=== PATIENT | female | born 1955 | race Caucasian/White ===

== ENCOUNTER 2023-11-22 10:56 | Inpatient (IN) | payer MEDICARE, MEDICAID ==
[~2023-11-22] VITALS: Ht 167.6 cm; Wt 47.7 kg
[~2023-11-22 10:56] MED LIST: ATOR10TA69 PO; DULO-113 PO; LEVO75 PO; LURA60TA4 PO; PROP60CA31 PO; TEMA15CA PO
[2023-11-24] MEDS ORDERED: HALOPERIDOL 5 MG TABLET PO PRN (10:15)
[2023-11-24 18:44] VITALS: BP 145/81; PULSE 57; RESP 18; TEMP 98
[2023-11-24 20:14] VITALS: BP 135/83; PULSE 68; RESP 18; TEMP 97.1
[2023-11-24] MEDS: HydrALAZINE HCL 50 MG TABLET PO SCH (23:32)
[2023-11-24 23:33] VITALS: BP 146/74; PULSE 58
[2023-11-25] MEDS: LEVOTHYROXINE SODIUM 75 MCG TABLET PO SCH (06:56)
[2023-11-25] MEDS: HydrALAZINE HCL 50 MG TABLET PO SCH ×3 (08:00→23:48)
[2023-11-25] MEDS: PANTOPRAZOLE SODIUM 40 MG DR TABLET PO SCH (08:44)
[2023-11-25] MEDS: ATORVASTATIN CALCIUM 10 MG TABLET PO SCH (08:44)
[2023-11-25 09:29] VITALS: BP 106/70; PULSE 85; RESP 18; TEMP 97.9
[2023-11-25] MEDS: AmLODIPine BESYLATE 10 MG TABLET PO SCH (10:39)
[2023-11-25] MEDS: PROPRANOLOL HCL 60 MG ER CAPSULE PO SCH (10:39)
[2023-11-25] MEDS: BACITRACIN 28 GM OINTMENT TP SCH ×2 (10:40→16:38)
[2023-11-25 10:41] VITALS: BP 149/74; RESP 18
[2023-11-25] MEDS: DULoxetine HCL 30 MG CAPSULE PO SCH (13:47)
[2023-11-25] MEDS ORDERED: MAG HYDROX/ALUMINUM HYD/SIMETH ES 30 ML SUSPENSION UDCUP PO PRN (14:15)
[2023-11-25] MEDS ORDERED: MAGNESIUM HYDROXIDE SUSPENSION 30 ML UDCUP PO PRN (14:15)
[2023-11-25] MEDS ORDERED: PETROLATUM,WHITE 28 GM JELLY TP PRN (14:15)
[2023-11-25] MEDS ORDERED: IBUPROFEN 400 MG TABLET PO PRN (14:15)
[2023-11-25] MEDS ORDERED: ONDANSETRON HCL 4 MG TABLET PO PRN (14:15)
[2023-11-25] MEDS ORDERED: LOPERAMIDE HCL 2 MG CAPSULE PO PRN (14:15)
[2023-11-25] MEDS ORDERED: NICOTINE 14 MG/24 HOUR PATCH TD PRN (14:15)
[2023-11-25] MEDS ORDERED: GuaiFENesin/D-METHORPHAN [SUGAR-FREE] 200-20MG/10 ML SYRUP UDCUP PO PRN (14:15)
[2023-11-25] MEDS ORDERED: ALBUTEROL SULFATE HFA 90 MCG/PUFF 8 GM INHALER IH PRN (14:15)
[2023-11-25] MEDS ORDERED: DOCUSATE SODIUM 100 MG CAPSULE PO PRN (14:15)
[2023-11-25] MEDS ORDERED: CloNIDine HCL 0.1 MG TABLET PO PRN (14:15)
[2023-11-25] MEDS ORDERED: ACETAMINOPHEN 325 MG TABLET PO PRN (14:15)
[2023-11-25 20:20] VITALS: BP 132/60; PULSE 80; RESP 18; TEMP 97.2
[2023-11-25] MEDS: LORazepam 2 MG TABLET PO PRN (21:48)
[2023-11-25 23:49] VITALS: BP 124/58; PULSE 59; RESP 18
[2023-11-26] MEDS: LEVOTHYROXINE SODIUM 75 MCG TABLET PO SCH (06:44)
[2023-11-26] MEDS: LURASIDONE HCL 80 MG TABLET PO SCH (07:01)
[2023-11-26 07:39] LABS: APPEARANCE,URINE CLEAR (CLEAR); BILIRUBIN,URINE NEGATIVE (NEGATIVE); COLOR,URINE COLORLESS (YELLOW); GLUCOSE, URINE (UA) NEGATIVE (NEGATIVE); KETONES,URINE NEGATIVE (NEGATIVE); LEUKOCYTE ESTERASE ,URINE NEGATIVE (NEGATIVE); NITRATE,URINE NEGATIVE (NEGATIVE); OCCULT BLOOD,URINE NEGATIVE (NEGATIVE); PH,URINE 5.5 (5.0-8.0); PROTEIN,URINE NEGATIVE (NEGATIVE); SPECIFIC GRAVITIY, URINE 1.004 (1.003-1.030); UROBILINOGEN,URINE <=1.0 mg/dL (<=1.0)
[2023-11-26 07:41] LABS: HEMOGLOBIN A1C 5.6 % (3.8-5.6)
[2023-11-26 07:45] LABS: AMPHET/METH SCREEN,URINE NEGATIVE (NEGATIVE); BARBITURATE SCREEN, URINE NEGATIVE (NEGATIVE); BENZODIAZEPINES SCREEN,URINE NEGATIVE (NEGATIVE); CANNABINOID SCREEN,URINE NEGATIVE (NEGATIVE); COCAINE SCREEN,URINE NEGATIVE (NEGATIVE); METHADONE SCREEN, URINE NEGATIVE (NEGATIVE); OPIATE SCREEN,URINE NEGATIVE (NEGATIVE); PHENCYCLIDINE SCREEN,URINE NEGATIVE (NEGATIVE)
[2023-11-26 07:47] LABS: THYROID STIMULATING HORMONE 2.17 uIU/mL (0.36-3.74)
[2023-11-26 07:52] LABS: PH,URINE DRUG SCREEN 5.5 (5.0-8.0)
[2023-11-26 07:53] LABS: ALCOHOL, URINE DRUG SCREEN NEGATIVE (NEGATIVE)
[2023-11-26 09:11] VITALS: RESP 18
[2023-11-26 09:32] LABS: CHOL/HDL RATIO 3.5 (3.9-5.7)
[2023-11-26] MEDS: PANTOPRAZOLE SODIUM 40 MG DR TABLET PO SCH (11:45)
[2023-11-26] MEDS: PROPRANOLOL HCL 60 MG ER CAPSULE PO SCH (11:46)
[2023-11-26] MEDS: HydrALAZINE HCL 50 MG TABLET PO SCH ×2 (11:46→17:26)
[2023-11-26] MEDS: BACITRACIN 28 GM OINTMENT TP SCH ×2 (11:48→17:26)
[2023-11-26] MEDS: DULoxetine HCL 30 MG CAPSULE PO SCH (11:48)
[2023-11-26] MEDS: AmLODIPine BESYLATE 10 MG TABLET PO SCH (11:48)
[2023-11-26] MEDS: ATORVASTATIN CALCIUM 10 MG TABLET PO SCH (11:49)
[2023-11-26] MEDS: MIRTAZAPINE 15 MG TABLET PO SCH (21:07)
[2023-11-26] MEDS: ZOLPIDEM TARTRATE 10 MG TABLET PO PRN (21:08)
[2023-11-26 21:44] VITALS: BP 116/58; PULSE 52; RESP 18; TEMP 98.1
[2023-11-26 23:50] VITALS: BP 112/56; PULSE 60; RESP 19; TEMP 97.6
[2023-11-27] MEDS: LEVOTHYROXINE SODIUM 75 MCG TABLET PO SCH (07:23)
[2023-11-27] MEDS: LURASIDONE HCL 80 MG TABLET PO SCH (07:31)
[2023-11-27] MEDS: HydrALAZINE HCL 50 MG TABLET PO SCH ×4 (08:00→23:15)
[2023-11-27] MEDS: BACITRACIN 28 GM OINTMENT TP SCH ×2 (08:33→16:06)
[2023-11-27] MEDS: PANTOPRAZOLE SODIUM 40 MG DR TABLET PO SCH (08:34)
[2023-11-27] MEDS: DULoxetine HCL 30 MG CAPSULE PO SCH (08:34)
[2023-11-27] MEDS: ATORVASTATIN CALCIUM 10 MG TABLET PO SCH (08:34)
[2023-11-27 08:38] VITALS: RESP 19
[2023-11-27] MEDS: AmLODIPine BESYLATE 10 MG TABLET PO SCH (09:40)
[2023-11-27] MEDS: PROPRANOLOL HCL 60 MG ER CAPSULE PO SCH (09:40)
[2023-11-27 09:44] VITALS: BP 115/60; PULSE 61; RESP 18; TEMP 98.4
[2023-11-27 16:26] VITALS: BP 146/74; RESP 18
[2023-11-27] MEDS: MIRTAZAPINE 15 MG TABLET PO SCH (20:07)
[2023-11-27 21:50] VITALS: RESP 18; TEMP 97.1
[2023-11-27] MEDS: ZOLPIDEM TARTRATE 10 MG TABLET PO PRN (22:53)
[2023-11-28] MEDS: LURASIDONE HCL 80 MG TABLET PO SCH (06:39)
[2023-11-28] MEDS: LEVOTHYROXINE SODIUM 75 MCG TABLET PO SCH (06:40)
[2023-11-28] MEDS: PANTOPRAZOLE SODIUM 40 MG DR TABLET PO SCH (08:10)
[2023-11-28] MEDS: ATORVASTATIN CALCIUM 10 MG TABLET PO SCH (08:10)
[2023-11-28] MEDS: AmLODIPine BESYLATE 10 MG TABLET PO SCH (08:10)
[2023-11-28] MEDS: PROPRANOLOL HCL 60 MG ER CAPSULE PO SCH (08:11)
[2023-11-28] MEDS: DULoxetine HCL 30 MG CAPSULE PO SCH (08:11)
[2023-11-28] MEDS: HydrALAZINE HCL 50 MG TABLET PO SCH ×3 (08:11→23:53)
[2023-11-28 09:10] VITALS: BP 151/75; PULSE 72; RESP 17; TEMP 97.1
[2023-11-28] MEDS: BACITRACIN 28 GM OINTMENT TP SCH ×2 (09:17→16:22)
[2023-11-28 14:35] LABS: CALCIUM, TOTAL 9.7 mg/dL (8.8-10.5); CREATININE 2.07 mg/dL (0.60-1.30); POTASSIUM 4.1 mmol/L (3.5-5.1)
[2023-11-28] MEDS: MIRTAZAPINE 15 MG TABLET PO SCH (20:48)
[2023-11-28 21:51] VITALS: BP 140/70; PULSE 70; RESP 18; TEMP 97.7
[2023-11-28 23:54] VITALS: BP 148/79
[2023-11-29] MEDS: LEVOTHYROXINE SODIUM 75 MCG TABLET PO SCH (06:51)
[2023-11-29] MEDS: LURASIDONE HCL 80 MG TABLET PO SCH (06:51)
[2023-11-29] MEDS: PROPRANOLOL HCL 60 MG ER CAPSULE PO SCH (08:31)
[2023-11-29] MEDS: DULoxetine HCL 30 MG CAPSULE PO SCH (08:32)
[2023-11-29] MEDS: HydrALAZINE HCL 50 MG TABLET PO SCH ×3 (08:32→23:58)
[2023-11-29] MEDS: ATORVASTATIN CALCIUM 10 MG TABLET PO SCH (08:32)
[2023-11-29] MEDS: BACITRACIN 28 GM OINTMENT TP SCH ×2 (08:32→16:19)
[2023-11-29] MEDS: PANTOPRAZOLE SODIUM 40 MG DR TABLET PO SCH (08:32)
[2023-11-29] MEDS: AmLODIPine BESYLATE 10 MG TABLET PO SCH (08:33)
[2023-11-29 09:48] VITALS: BP 124/76; PULSE 96; RESP 18; TEMP 97.7
[2023-11-29 15:43] VITALS: BP 128/80; PULSE 80; RESP 17; TEMP 98
[2023-11-29 20:23] VITALS: BP 129/87; PULSE 78; RESP 18; TEMP 97.9
[2023-11-29] MEDS: MIRTAZAPINE 15 MG TABLET PO SCH (20:50)
[2023-11-29 23:50] VITALS: BP 99/64; PULSE 82; RESP 20; TEMP 97.3
[2023-11-30] MEDS: LEVOTHYROXINE SODIUM 75 MCG TABLET PO SCH (06:55)
[2023-11-30] MEDS: LURASIDONE HCL 80 MG TABLET PO SCH (06:55)
[2023-11-30] MEDS: BACITRACIN 28 GM OINTMENT TP SCH ×2 (09:00→18:05)
[2023-11-30 09:11] VITALS: BP 144/56; PULSE 86; RESP 18; TEMP 98.1
[2023-11-30 10:28] VITALS: BP 146/67; PULSE 64
[2023-11-30] MEDS: PROPRANOLOL HCL 60 MG ER CAPSULE PO SCH (10:29)
[2023-11-30] MEDS: PANTOPRAZOLE SODIUM 40 MG DR TABLET PO SCH (10:29)
[2023-11-30] MEDS: ATORVASTATIN CALCIUM 10 MG TABLET PO SCH (10:29)
[2023-11-30] MEDS: HydrALAZINE HCL 50 MG TABLET PO SCH ×3 (10:29→23:45)
[2023-11-30] MEDS: AmLODIPine BESYLATE 10 MG TABLET PO SCH (10:29)
[2023-11-30] MEDS: DULoxetine HCL 30 MG CAPSULE PO SCH (10:30)
[2023-11-30 18:03] VITALS: BP 126/53; PULSE 53
[2023-11-30] MEDS: MIRTAZAPINE 15 MG TABLET PO SCH (21:00)
[2023-11-30 21:25] VITALS: BP 100/56; PULSE 56; TEMP 97.8
[2023-11-30] MEDS: ZOLPIDEM TARTRATE 10 MG TABLET PO PRN (21:34)
[2023-11-30] MEDS: LORazepam 2 MG TABLET PO PRN (21:57)
[2023-12-01] MEDS: LEVOTHYROXINE SODIUM 75 MCG TABLET PO SCH (06:36)
[2023-12-01] MEDS: LURASIDONE HCL 80 MG TABLET PO SCH (06:36)
[2023-12-01] MEDS: HydrALAZINE HCL 50 MG TABLET PO SCH ×2 (08:00→17:15)
[2023-12-01] MEDS: BACITRACIN 28 GM OINTMENT TP SCH ×2 (08:39→17:15)
[2023-12-01] MEDS: AmLODIPine BESYLATE 10 MG TABLET PO SCH (08:40)
[2023-12-01] MEDS: PANTOPRAZOLE SODIUM 40 MG DR TABLET PO SCH (08:40)
[2023-12-01] MEDS: ATORVASTATIN CALCIUM 10 MG TABLET PO SCH (08:40)
[2023-12-01] MEDS: PROPRANOLOL HCL 60 MG ER CAPSULE PO SCH ×2 (08:40→09:00)
[2023-12-01] MEDS: DULoxetine HCL 30 MG CAPSULE PO SCH (08:40)
[2023-12-01 09:39] VITALS: BP 113/42; PULSE 52; RESP 18; TEMP 97.2
[2023-12-01] MEDS: LORazepam 2 MG TABLET PO PRN (13:23)
[2023-12-01 20:42] VITALS: BP 147/61; PULSE 66; RESP 18; TEMP 98.4
[2023-12-01] MEDS: MIRTAZAPINE 15 MG TABLET PO SCH (21:00)
[2023-12-01] MEDS: ZOLPIDEM TARTRATE 10 MG TABLET PO PRN (21:25)
[2023-12-02] MEDS: HydrALAZINE HCL 50 MG TABLET PO SCH ×2 (00:41→09:10)
[2023-12-02] MEDS: LURASIDONE HCL 80 MG TABLET PO SCH (06:54)
[2023-12-02] MEDS: LEVOTHYROXINE SODIUM 75 MCG TABLET PO SCH (06:54)
[2023-12-02] MEDS: DULoxetine HCL 30 MG CAPSULE PO SCH (09:09)
[2023-12-02] MEDS: ATORVASTATIN CALCIUM 10 MG TABLET PO SCH (09:10)
[2023-12-02] MEDS: AmLODIPine BESYLATE 10 MG TABLET PO SCH (09:10)
[2023-12-02] MEDS: PANTOPRAZOLE SODIUM 40 MG DR TABLET PO SCH (09:10)
[2023-12-02] MEDS: PROPRANOLOL HCL 60 MG ER CAPSULE PO SCH (09:10)
[2023-12-02] MEDS: BACITRACIN 28 GM OINTMENT TP SCH (09:10)
[2023-12-02] MEDS ORDERED: MIRT-89 PO (10:26)
[2023-12-02] MEDS ORDERED: BACI28.410 TP (10:29)
[2023-12-02] MEDS ORDERED: AMLO-258 PO (10:29)
[2023-12-02] MEDS ORDERED: HYDR50TA36 PO (10:30)
[2023-12-02] MEDS ORDERED: PANT-31 PO (10:31)
[2023-12-02 11:26] VITALS: BP 115/72; PULSE 86; RESP 19; TEMP 96.7
== END 2023-12-02 16:42 | disposition home or self-care (01) | DRG 885 ==
LOC: 3EI 11-24 16:45 → UNDOADMIN 11-24 16:45
PROVIDERS: ADMIT Psychiatry & Neurology Psychiatry; ATTEND Psychiatry & Neurology Psychiatry
DX: F25.9 Schizoaffective disorder, unspecified (principal); F06.1 Catatonic disorder due to known physiological condition; N17.9 Acute kidney failure, unspecified; E87.20 Acidosis, unspecified; E87.0 Hyperosmolality and hypernatremia; F31.9 Bipolar disorder, unspecified; E03.9 Hypothyroidism, unspecified; E78.5 Hyperlipidemia, unspecified; I10 Essential (primary) hypertension; Z91.51 Personal history of suicidal behavior; Z79.899 Other long term (current) drug therapy; Z88.0 Allergy status to penicillin
CPT/HCPCS: 80048; 80061; 80307; 81003; 83036; 84443; 87081

== ENCOUNTER 2024-01-08 10:43 | Inpatient (IN) | payer MEDICARE, OTHER ==
[~2024-01-08] VITALS: Ht 167.6 cm; Wt 49.9 kg
[~2024-01-08 10:43] MED LIST changes: +AMLO-258 PO; +BACI28.410 TP; +HYDR50TA36 PO; +MIRT-89 PO; +PANT-31 PO; -TEMA15CA PO
[2024-01-08 11:25] LABS: BASOPHILS % (AUTO) 1.3 % (0.0-2.0); EOSINOPHILS % (AUTO) 2.7 % (1.0-6.0); HEMATOCRIT 30.6 % (36-46); HEMOGLOBIN 10.1 g/dL (12.0-16.0); LYMPHOCYTES % (AUTO) 20.3 % (22.0-44.0); MEAN CORPUSCULAR HGB CONC 32.9 G/dL (31.0-37.0); MEAN CORPUSCULAR VOLUME 97 fL (80-100); MONOCYTES # (AUTO) 0.4 K/uL (0.1-1.0); MONOCYTES % (AUTO) 7.4 % (2.0-9.0); NEUTROPHILS # (AUTO) 3.5 K/uL (1.8-7.7); NEUTROPHILS % (AUTO) 68.3 % (40.0-70.0); PLATELET COUNT (AUTO) 233 K/uL (150-450); RED BLOOD CELL COUNT(AUTO) 3.14 MIL/uL (4.00-5.20); RED CELL DISTRIBUTION WIDTH 14.5 % (11.5-14.5); WHITE BLOOD COUNT (AUTO) 5.1 K/uL (4.5-11.0)
[2024-01-08 11:37] LABS: INR 1.1 (0.9-1.1); PROTHROMBIN TIME 11.5 SEC (9.4-11.6)
[2024-01-08 12:03] LABS: CALCIUM, TOTAL 9.2 mg/dL (8.8-10.5); CREATININE 2.03 mg/dL (0.60-1.30); POTASSIUM 3.2 mmol/L (3.5-5.1)
[2024-01-08 12:04] LABS: TROPONIN I-HIGH SENSITIVITY 28 ng/L (<51)
[2024-01-08 12:15] LABS: ALBUMIN 3.3 g/dL (3.4-5.0); BILIRUBIN,TOTAL 0.4 mg/dL (0.1-1.0); TOTAL PROTEIN, SERUM 6.6 g/dL (6.4-8.2)
[2024-01-08 12:40] LABS: COVID AG,FIA SOURCE NASAL SWAB
[2024-01-08 13:17] LABS: SARS-COV2 (COVID) ANTIGEN,FIA Negative (Negative)
[2024-01-08] MEDS ORDERED: ONDANSETRON HCL 4 MG/2 ML VIAL IVP PRN (13:30)
[2024-01-08] MEDS ORDERED: ACETAMINOPHEN 325 MG TABLET PO PRN (13:30)
[2024-01-08] MEDS: POTASSIUM CHLORIDE 20 MEQ ER TABLET PO ONE (14:30)
[2024-01-08] MEDS: AmLODIPine BESYLATE 5 MG TABLET PO SCH (14:30)
[2024-01-08] MEDS: ONDANSETRON HCL 4 MG/2 ML VIAL IVP ONE (14:30)
[2024-01-08] MEDS: MORPHINE SULFATE 2 MG/ML SYRINGE IVP ONE (14:31)
[2024-01-08 15:56] LABS: APPEARANCE,URINE CLEAR (CLEAR); BILIRUBIN,URINE NEGATIVE (NEGATIVE); COLOR,URINE COLORLESS (YELLOW); GLUCOSE, URINE (UA) NEGATIVE (NEGATIVE); KETONES,URINE NEGATIVE (NEGATIVE); LEUKOCYTE ESTERASE ,URINE NEGATIVE (NEGATIVE); NITRATE,URINE NEGATIVE (NEGATIVE); OCCULT BLOOD,URINE NEGATIVE (NEGATIVE); PROTEIN,URINE TRACE mg/dL (NEGATIVE); SPECIFIC GRAVITIY, URINE 1.005 (1.003-1.030); UROBILINOGEN,URINE <=1.0 mg/dL (<=1.0)
[2024-01-08] MEDS: HEPARIN SODIUM,PORCINE 5,000 UNITS/ML VIAL SQ SCH (16:00)
[2024-01-08] MEDS: SODIUM CHLORIDE 0.9% 1,000 ML IV ONE (17:41)
[2024-01-08 17:46] VITALS: BP 153/87; PULSE 46; RESP 18; TEMP 98.2
[2024-01-08 20:36] VITALS: BP 166/88; PULSE 48; RESP 18; TEMP 98.2
[2024-01-08] MEDS: DOCUSATE SODIUM 100 MG CAPSULE PO SCH (21:00)
[2024-01-08 23:44] VITALS: BP 163/98; PULSE 53; RESP 19; TEMP 97.7
[2024-01-09 04:00] VITALS: BP 165/76; PULSE 49; RESP 18; TEMP 97.5
[2024-01-09] MEDS: LEVOTHYROXINE SODIUM 50 MCG TABLET PO SCH (05:41)
[2024-01-09] MEDS: AmLODIPine BESYLATE 10 MG TABLET PO SCH (06:52)
[2024-01-09 07:17] VITALS: BP 169/67; PULSE 49; RESP 18; TEMP 97.3
[2024-01-09] MEDS: FAMOTIDINE 20 MG TABLET PO SCH (08:28)
[2024-01-09 09:35] LABS: CALCIUM, TOTAL 9.5 mg/dL (8.8-10.5); CREATININE 1.83 mg/dL (0.60-1.30); POTASSIUM 3.6 mmol/L (3.5-5.1)
[2024-01-09 12:36] VITALS: BP 149/66; PULSE 52; RESP 18
[2024-01-09 16:25] VITALS: BP 167/89; PULSE 51; RESP 20; TEMP 98.3
[2024-01-09 20:09] VITALS: BP 166/103; PULSE 57; RESP 20; TEMP 98.8
[2024-01-10 01:01] VITALS: BP 138/109; PULSE 57; RESP 20; TEMP 98.8
[2024-01-10 03:47] VITALS: BP 201/98; PULSE 64; RESP 20; TEMP 98.2
[2024-01-10] MEDS: HydrALAZINE HCL 20 MG/ML VIAL IVP PRN (06:48)
[2024-01-10 08:02] VITALS: BP 204/107; PULSE 73; RESP 20; TEMP 98.5
[2024-01-10] MEDS: AmLODIPine BESYLATE 10 MG TABLET PO SCH (08:34)
[2024-01-10 09:40] VITALS: BP 166/98
[2024-01-10 12:19] VITALS: BP 186/93; PULSE 78; RESP 20; TEMP 98.2
[2024-01-10] MEDS: LOSARTAN POTASSIUM 50 MG TABLET PO SCH (14:00)
[2024-01-10] MEDS ORDERED: LOSARTAN POTASSIUM 25 MG TABLET PO SCH (14:00)
[2024-01-10] MEDS: DULoxetine HCL 30 MG CAPSULE PO SCH (17:45)
[2024-01-10 18:05] VITALS: BP 181/76
[2024-01-10] MEDS: MIRTAZAPINE 15 MG TABLET PO SCH (21:00)
[2024-01-11 06:16] VITALS: BP 171/92; PULSE 69; RESP 19; TEMP 98.4
[2024-01-11] MEDS: LURASIDONE HCL 80 MG TABLET PO SCH (08:00)
[2024-01-11 11:38] VITALS: BP 198/99; PULSE 58; RESP 18; TEMP 98.4
[2024-01-11] MEDS: CloNIDine 0.1 MG/24 HOUR PATCH TD ONE (13:25)
[2024-01-11 15:47] VITALS: BP 187/97; PULSE 63; RESP 18; TEMP 98.1
[2024-01-12 07:11] VITALS: BP 184/93; PULSE 64; RESP 18; TEMP 98.6
[2024-01-12 11:22] VITALS: BP 167/94; PULSE 59; RESP 20; TEMP 98
[2024-01-12 15:09] LABS: BASOPHILS % (AUTO) 1.1 % (0.0-2.0); EOSINOPHILS % (AUTO) 1.9 % (1.0-6.0); HEMATOCRIT 35.1 % (36-46); HEMOGLOBIN 11.9 g/dL (12.0-16.0); LYMPHOCYTES # (AUTO) 2.5 K/uL (1.0-4.8); LYMPHOCYTES % (AUTO) 29.7 % (22.0-44.0); MEAN CORPUSCULAR HEMOGLOBIN 32.3 pg (26.0-34.0); MEAN CORPUSCULAR HGB CONC 33.9 G/dL (31.0-37.0); MEAN CORPUSCULAR VOLUME 95 fL (80-100); MONOCYTES # (AUTO) 0.7 K/uL (0.1-1.0); MONOCYTES % (AUTO) 8.7 % (2.0-9.0); NEUTROPHILS % (AUTO) 58.6 % (40.0-70.0); PLATELET COUNT (AUTO) 310 K/uL (150-450); RED BLOOD CELL COUNT(AUTO) 3.68 MIL/uL (4.00-5.20); RED CELL DISTRIBUTION WIDTH 14.2 % (11.5-14.5); WHITE BLOOD COUNT (AUTO) 8.5 K/uL (4.5-11.0)
[2024-01-12 15:51] VITALS: BP 149/68; PULSE 68; RESP 18; TEMP 98
[2024-01-12] MEDS: CloNIDine 0.1 MG/24 HOUR PATCH TD SCH (16:18)
[2024-01-12 20:02] VITALS: BP 155/65; PULSE 54; RESP 19; TEMP 98.5
[2024-01-13] VITALS (7 sets, daily range): BP systolic 112–171; BP diastolic 52–91; PULSE 53–82; RESP 14–18; TEMP 97.9–98.7
[2024-01-13] MEDS: HydrALAZINE HCL 25 MG TABLET PO PRN (06:11)
[2024-01-14 04:12] VITALS: BP 155/85; PULSE 51; RESP 18; TEMP 97.6
[2024-01-14 09:19] VITALS: BP 187/92; PULSE 56; RESP 19; TEMP 98
[2024-01-14 11:48] VITALS: BP 160/71; PULSE 72; RESP 18; TEMP 98.1
[2024-01-14 16:39] VITALS: BP 142/70; PULSE 62; RESP 19; TEMP 98.1
[2024-01-14] MEDS: CloNIDine 0.2 MG/24 HOUR PATCH TD SCH (17:15)
[2024-01-14] MEDS: BISACODYL 10 MG RECTAL RECTAL SUPPOSITORY PR ONE (18:11)
[2024-01-14 19:33] VITALS: BP 159/74; PULSE 65; RESP 18; TEMP 97.8
[2024-01-15] VITALS (7 sets, daily range): BP systolic 128–165; BP diastolic 54–89; PULSE 58–70; RESP 18–20; TEMP 97.6–98.4
[2024-01-16 04:55] VITALS: BP 156/78; PULSE 61; RESP 18; TEMP 97.8
[2024-01-16 07:54] VITALS: BP 160/81; PULSE 56; RESP 17; TEMP 98.1
[2024-01-16 10:55] VITALS: BP 176/91; PULSE 58; RESP 18; TEMP 98.3
[2024-01-16] MEDS: MAGNESIUM CITRATE [LEMON] 300 ML ORAL SOLUTION PO ONE (13:45)
[2024-01-16 15:01] VITALS: BP 163/77; PULSE 66; RESP 18; TEMP 98.3
[2024-01-16 20:32] VITALS: BP 135/64; PULSE 66; RESP 18; TEMP 98.4
[2024-01-17 00:05] VITALS: BP 160/84; PULSE 64; RESP 18; TEMP 97.8
[2024-01-17 04:30] VITALS: BP 143/61; PULSE 70; RESP 18; TEMP 98.3
[2024-01-17 08:15] VITALS: BP 149/83; PULSE 75; RESP 19; TEMP 98.2
[2024-01-17 11:06] VITALS: BP 143/77; PULSE 68; RESP 18; TEMP 98
[2024-01-17 15:20] VITALS: BP 129/76; PULSE 70; RESP 19; TEMP 98
[2024-01-17 16:30] LABS: COVID AG,FIA SOURCE NASAL SWAB
[2024-01-17 17:00] LABS: SARS-COV2 (COVID) ANTIGEN,FIA Negative (Negative)
== END 2024-01-17 23:00 | DRG 309 ==
LOC: EMS 10:43 → AHU 11:22 → 5S 14:19
PROVIDERS: ADMIT Internal Medicine; ATTEND Internal Medicine
DX: R00.1 Bradycardia, unspecified (principal); N17.9 Acute kidney failure, unspecified; N18.9 Chronic kidney disease, unspecified; I12.9 Hypertensive chronic kidney disease with stage 1 through stage 4 chronic kidney disease, or unspecified chronic kidney disease; F20.9 Schizophrenia, unspecified; E03.9 Hypothyroidism, unspecified; K59.00 Constipation, unspecified; Z20.822 Contact with and (suspected) exposure to COVID-19; Z88.0 Allergy status to penicillin; F32.A Depression, unspecified; I16.0 Hypertensive urgency
CPT/HCPCS: 71045; 73503; 80048; 80053; 81003; 82550; 83880; 84484; 85025; 85610; 85730; 93005; 97161; 99285; G0378; J0360; J1644; J2270; J2405; J7030; 36415-L1; 36415-TC